=== PATIENT | female | born 1965 | race Caucasian/White ===

== ENCOUNTER 2024-07-12 17:36 | Emergency (ER) | payer BC ==
[2024-07-12 19:18] VITALS: BP 128/84; PULSE 96
== END 2024-07-12 17:56 | disposition home or self-care (01) ==
LOC: FB.ED 17:36
DX: S01.01XA Laceration without foreign body of scalp, initial encounter (principal); K21.9 Gastro-esophageal reflux disease without esophagitis; Z79.899 Other long term (current) drug therapy; Z79.82 Long term (current) use of aspirin; Z79.84 Long term (current) use of oral hypoglycemic drugs; Z88.0 Allergy status to penicillin; W19.XXXA Unspecified fall, initial encounter
CPT/HCPCS: 12002; 99283